=== PATIENT | male | born 1950 | race Caucasian/White ===

== ENCOUNTER 2022-09-19 06:24 | Day surgery (SDC) | payer OTHER ==
[~2022-09-19] VITALS: Ht 177.8 cm; Wt 71.2 kg
[~2022-09-19 06:24] MED LIST: KETO10TA2 PO; LEVAQUIN750 MG PO
[2022-09-19] MEDS ORDERED: ACETAMINOPHEN500 M2 PO (08:46)
[2022-09-19] MEDS ORDERED: PERCOCET 5-3251 EACH PO (08:46)
[2022-09-19] MEDS ORDERED: NEURONTIN300 MG PO (08:46)
== END 2022-09-19 12:40 | disposition home or self-care (01) ==
LOC: CIR.AMB 06:24
PROVIDERS: ATTEND Surgery
DX: K64.4 Residual hemorrhoidal skin tags (principal); K64.8 Other hemorrhoids; K62.89 Other specified diseases of anus and rectum; K64.2 Third degree hemorrhoids; I10 Essential (primary) hypertension; Z20.822 Contact with and (suspected) exposure to COVID-19